=== PATIENT | male | born 1980 | race Caucasian/White ===

== ENCOUNTER 2019-09-07 01:25 | Inpatient (IN) | payer OTHER ==
[2019-09-07] VITALS (13 sets, daily range): BP systolic 101–140; BP diastolic 62–95; PULSE 74–115; TEMP 98.1–102.4
[~2019-09-07] VITALS: Ht 182.9 cm; Wt 99.9 kg
--- NOTE | 2019-09-07 03:05 | NUR ---
Patient arrived to unit from [facility]. Patient is alert and oriented with VSS. Patient dx with appendicitis and is to have a lap appy this AM with Dr. Renteria. Patient presents with right lower abdominal pain that pt states is a sharp, shooting pain. This pain has been going on for 2 days. Patient has hypoactive bowel sounds in all quadrants. Has 18g IV to left AV that was started at [facility]. Here with in room. LR running, and PRN dilaudid given per orders. Consent for surgery is signed. Pt has no questions or concerns at this time. Call light within reach, will continue to monitor.
--- NOTE | 2019-09-07 06:29 | NUR ---
Pt was asymptomtic with fever. States he felt fine and did not want anything to treat it. Call light within reach, will continue to monitor
--- NOTE | 2019-09-07 08:07 | NUR ---
Dr Renteria and MACHINE II TRIMMER notified of VS.
[2019-09-07 08:25] LABS: BASO % 0.2 % (0.0-2.0); GRAN % 86.2 % (42.2-75.2); HEMATOCRIT 44.1 % (42.0-52.0); HEMOGLOBIN 14.8 g/dl (13.5-18.0); LYMPH # 0.6 (1.2-3.4); LYMPH % 5.5 % (20.0-51.0); MEAN CELL VOLUME 87 fl (80.0-100.0); MEAN CORPUSCULAR HEMOGLOBIN 29 pg (27.0-31.0); MEAN CORPUSCULAR HGB CONC 34 g/dl (33.0-37.0); MEAN PLATELET VOLUME 9.5 fl (7.4-10.4); MONO # 0.9 (0.1-0.6); MONO % 7.8 % (1.7-9.3); PLATELET COUNT 168 K/mm3 (130-400); RED BLOOD COUNT 5.05 M/mm3 (4.20-5.60); REDCELL DISTRIBUTION WIDTH-CV 13.5 % (11.5-14.5)
--- NOTE | 2019-09-07 08:30 | NUR ---
Patient alert and oriented, answers questions appropriately. See assessment. Abdomen soft, non distended. Bowel sounds active x4 quads. Tenderness or RUQ/RLQ. +Flatus. No c/o at this time.
[2019-09-07 08:44] LABS: ALBUMIN 3.5 gm/dL (3.5-5.0); BILIRUBIN,TOTAL 1.4 mg/dL (0.0-1.0); CALCIUM 7.8 mg/dL (8.4-10.2); CREATININE, serum 0.93 (0.66-1.25); POTASSIUM 3.9 mmol/L (3.4-5.0); TOTAL PROTEIN 6.5 gm/dL (6.4-8.2)
--- NOTE | 2019-09-07 09:01 | NUR ---
CHELA met with the patient and the patient's , Yudelka (ph#[phone]), to discuss discharge plan. The patient lives in [place] with his and their four children. He reports independence with ADLs and does not have any DME. The patient receives primary care and his medications at [facility]. He reports no difficulties obtaining his meds. The patient does not have advanced directives and he was not interested in completing them at this time. The patient plans to return home with his family upon discharge. No additional needs at this time.
--- NOTE | 2019-09-07 09:15 | NUR ---
Initial visit; Patient thanked Date Puller for looking in on him and offering God's blessings and to keep him in Date Puller's prayers.
--- NOTE | 2019-09-07 10:15 | NUR ---
Patient to surgery with surgical staff at 0915.
[2019-09-07] MEDS ORDERED: AMOXICILLIN 8751 TAB PO (11:30)
[2019-09-07] MEDS ORDERED: MOTRIN 600600 MG/TAB PO (11:31)
[2019-09-07] MEDS ORDERED: NORCO 325 MG-51 TAB PO (11:31)
--- NOTE | 2019-09-07 13:00 | NUR ---
Patient returns from surgery, asssessment unchanged except for abdomen with lap sites x3 with edges well approximated, no redness or drainage noted. KT to mid abdomen with scant amount serosanguinous drainage noted. No c/o pain or discomfort at this time.
--- NOTE | 2019-09-07 21:53 | NUR ---
Pt doing ok. Resting in bed. Assessment completed, alert and oriented with VSS. Patient has KT drain to left side of abdomen, draining red-tinged drainage. 1 lap site above umbilicus, CD&I. Open to air. States he has some pain but does not want to take pain medicine. Denies needs at this time. Call light within reach, will continue to monitor.
[2019-09-08] VITALS: BP 135/86; PULSE 67; TEMP 98.1
[2019-09-08 03:47] VITALS: BP 131/89; PULSE 68; TEMP 97.9
--- NOTE | 2019-09-08 04:09 | NUR ---
Pt has had uneventful night. No concerns
[2019-09-08 09:10] VITALS: BP 134/85; PULSE 81; TEMP 98.8
--- NOTE | 2019-09-08 10:00 | NUR ---
Patient alert and oriented, answers questions appropriately. See assessment. Abdomen soft, non distended. Bowel sounds audible x4 quads. +Flatus. Lap sites with edges well approximated, no redness or drainage noted. Post op exercises reviewed. C/o nausea, no appetite, general malaise, generalized pain to abdomen. No other c/o at this time.
[2019-09-08 12:26] LABS: BASO % 0.1 % (0.0-2.0); EOS % 0.1 % (0-4.0); GRAN # 12.4 (1.4-6.5); GRAN % 87.3 % (42.2-75.2); HEMOGLOBIN 15.4 g/dl (13.5-18.0); LYMPH # 0.7 (1.2-3.4); LYMPH % 5.2 % (20.0-51.0); MEAN CELL VOLUME 88 fl (80.0-100.0); MEAN CORPUSCULAR HEMOGLOBIN 29 pg (27.0-31.0); MEAN CORPUSCULAR HGB CONC 34 g/dl (33.0-37.0); MEAN PLATELET VOLUME 9.6 fl (7.4-10.4); MONO # 0.9 (0.1-0.6); MONO % 6.6 % (1.7-9.3); PLATELET COUNT 194 K/mm3 (130-400); RED BLOOD COUNT 5.23 M/mm3 (4.20-5.60); REDCELL DISTRIBUTION WIDTH-CV 13.3 % (11.5-14.5)
[2019-09-08 12:43] LABS: ALBUMIN 3.5 gm/dL (3.5-5.0); BILIRUBIN,TOTAL 0.5 mg/dL (0.0-1.0); CALCIUM 8.6 mg/dL (8.4-10.2); CREATININE, serum 0.97 (0.66-1.25); POTASSIUM 3.8 mmol/L (3.4-5.0); TOTAL PROTEIN 6.8 gm/dL (6.4-8.2)
[2019-09-08 13:12] VITALS: BP 139/84; PULSE 87; TEMP 98.2
--- NOTE | 2019-09-08 15:56 | NUR ---
Patient continues with general malaise, refuses pain medications, state 'they don't really do anything'. Dr Renteria here to see patient around noon. Encouraged post op exercises. No other c/o at this time.
[2019-09-08 16:20] VITALS: BP 145/77; PULSE 88; TEMP 98.2
--- NOTE | 2019-09-08 20:00 | NUR ---
Report received. Assumed care for test department helper. A&Ox3. Assessment complete. VS stable. Lap sites x3-edges well approximated. KT drain with scant amount of serosanguineous fluid. Denies pain/nausea/shortness of breath. States he has started to pass gas. Bowel sounds audible all quadrants. Dnenies needs. Plan of care discussed for IV antibiotics/pain control. Verbalizes understanding. Spouse at bedside. Encouraged to call for questions or concerns. Verbalizes understanding. Will monitor.
[2019-09-08 21:40] VITALS: BP 134/78; PULSE 87; TEMP 98.3
[2019-09-09] VITALS (7 sets, daily range): BP systolic 124–137; BP diastolic 73–82; PULSE 70–90; TEMP 98–98.6
--- NOTE | 2019-09-09 04:59 | NUR ---
Rested off and on this shift. Has denies pain/nausea/shortness of breath. Bowel sounds are active all 4 quads-states has been passing gas. KT drain with a total of 130mls of fluid-serosangenous fluid. Spouse remained at bedside. Call light in reach. Bed in low position/wheels locked. Will monitor.
[2019-09-09 06:06] LABS: BASO % 0.2 % (0.0-2.0); EOS # 0.2 (0.0-0.7); EOS % 1.7 % (0-4.0); GRAN # 10.1 (1.4-6.5); GRAN % 82.9 % (42.2-75.2); HEMOGLOBIN 15.3 g/dl (13.5-18.0); LYMPH # 0.9 (1.2-3.4); LYMPH % 7.2 % (20.0-51.0); MEAN CELL VOLUME 87 fl (80.0-100.0); MEAN CORPUSCULAR HEMOGLOBIN 29 pg (27.0-31.0); MEAN CORPUSCULAR HGB CONC 33 g/dl (33.0-37.0); MONO # 0.9 (0.1-0.6); MONO % 7.3 % (1.7-9.3); PLATELET COUNT 258 K/mm3 (130-400); RED BLOOD COUNT 5.28 M/mm3 (4.20-5.60); REDCELL DISTRIBUTION WIDTH-CV 13.6 % (11.5-14.5)
[2019-09-09 06:17] LABS: ALBUMIN 3.5 gm/dL (3.5-5.0); BILIRUBIN,TOTAL 0.8 mg/dL (0.0-1.0); CALCIUM 8.8 mg/dL (8.4-10.2); CREATININE, serum 1.03 (0.66-1.25); POTASSIUM 3.9 mmol/L (3.4-5.0)
--- NOTE | 2019-09-09 07:54 | NUR ---
Patient up to restroom, states he had a small BM, passing gas. Alert and oriented x 3. Shift assessment complete. Patient states discomfort to abdomen, states he feels bloated and having some abdominal pain with ambulation, medication given per orders. Lap sites with edges well approximated. KT to bulb compression. INT to left AC. Spouse at bedside. Denies further needs at this time.
--- NOTE | 2019-09-09 10:42 | NUR ---
Follow-up visit; Patient continues to feel uncomfortable though thanked Mail Agent for stopping. Patient declines spiritual care.
--- NOTE | 2019-09-09 20:20 | NUR ---
PT IS ALERT, OX3, APPROPRIATE. PT REPORTS PAIN TO ABDOMEN WITH ANY ACTIVITY, RATES AT 7/10; DENIES NEED FOR PAIN MEDICATION AT THIS TIME. PT DENIES ANY OTHER ISSUES. AT BEDSIDE. CALL LIGHT WITHIN REACH.
--- NOTE | 2019-09-09 22:35 | NUR ---
IV FLUIDS LOCKED AT THIS TIME FOLLOWING COMPLETION OF CURRENT BAG. PT TOLERATING PO WITHOUT ISSUES.
[2019-09-10 03:45] VITALS: BP 123/71; PULSE 76; TEMP 98.1
--- NOTE | 2019-09-10 06:34 | NUR ---
PT REPORTS SLEEPING WELL THROUGH THE NIGHT, DENIES PAIN CURRENTLY WHILE RESTING IN BED. PT REFUSED WEARING SCD'S LAST NIGHT. HAS HAD MODERATE AMOUNT OF YELLOW COLORED DRAINAGE FROM KT DRAIN. PT DENIES ANY NEEDS THIS AM. CALL LIGHT WITHIN REACH.
[2019-09-10 07:44] LABS: BASO % 0.4 % (0.0-2.0); EOS # 0.4 (0.0-0.7); EOS % 5.8 % (0-4.0); GRAN # 5.5 (1.4-6.5); GRAN % 74.7 % (42.2-75.2); HEMATOCRIT 43.2 % (42.0-52.0); HEMOGLOBIN 14.2 g/dl (13.5-18.0); LYMPH # 0.8 (1.2-3.4); LYMPH % 10.3 % (20.0-51.0); MEAN CELL VOLUME 89 fl (80.0-100.0); MEAN CORPUSCULAR HEMOGLOBIN 29 pg (27.0-31.0); MEAN CORPUSCULAR HGB CONC 33 g/dl (33.0-37.0); MEAN PLATELET VOLUME 9.3 fl (7.4-10.4); MONO # 0.6 (0.1-0.6); MONO % 8.3 % (1.7-9.3); PLATELET COUNT 228 K/mm3 (130-400); RED BLOOD COUNT 4.85 M/mm3 (4.20-5.60); REDCELL DISTRIBUTION WIDTH-CV 13.7 % (11.5-14.5)
[2019-09-10 07:58] LABS: ALBUMIN 3.1 gm/dL (3.5-5.0); BILIRUBIN,TOTAL 0.9 mg/dL (0.0-1.0); CALCIUM 8.1 mg/dL (8.4-10.2); CREATININE, serum 0.99 (0.66-1.25); POTASSIUM 3.6 mmol/L (3.4-5.0); TOTAL PROTEIN 6.4 gm/dL (6.4-8.2)
--- NOTE | 2019-09-10 09:45 | NUR ---
Patient alert and oriented, answers questions appropriately. See assessment. Abdomen soft, non distended. Bowel sounds active x4 quads. +Flatus. Lap sites to abdomen with edges well approximated, no redness or drainage noted. KT site to abdomen with dressing CDI, moderate amount of serosanguinous drainage noted to bulb. No c/o at this time.
[2019-09-10 10:01] VITALS: BP 103/56; PULSE 79; TEMP 98.9
[2019-09-10 12:41] VITALS: BP 136/79; PULSE 79; TEMP 98.1
[2019-09-10] MEDS ORDERED: Work Release (15:46)
--- NOTE | 2019-09-10 17:34 | NUR ---
Discharge instructions reviewed with patient and spouse, verbalized understanding. Discharged via wheelchair to auto/home with spouse at 1610.
== END 2019-09-10 16:10 | disposition home or self-care (01) | DRG 339 ==
LOC: MEDICAL 01:25 → SURG 02:13
PROVIDERS: ADMIT Surgery
PROC: 0DTJ4ZZ Resection of Appendix, Percutaneous Endoscopic Approach (ICD-10-PCS; principal; 2019-09-07 09:30)
DX: K35.32 Acute appendicitis with perforation, localized peritonitis, and gangrene, without abscess (principal); K56.7 Ileus, unspecified; D72.829 Elevated white blood cell count, unspecified
CPT/HCPCS: OP; A9284; C9113; G0378; G0379; J1100; J1170; J1885; J2405; J2543; J2704; J3010; J7120